=== PATIENT | female | born 1975 | race Caucasian/White ===

== ENCOUNTER 2017-11-04 09:48 | Day surgery (SDC) | payer OTHER ==
[2017-11-04] MEDS ORDERED: DIPRIVAN 200 MG/20 ML IV ONE (09:49)
[2017-11-04] MEDS ORDERED: LIDOCAINE HCL 2% 100 MG/5 ML ONE (10:00)
[2017-11-04] MEDS ORDERED: Xylocaine-Mpf 2 ML ONE (10:00)
[2017-11-04] MEDS ORDERED: Marcaine 0.5% SDV 10 ML ONE (10:00)
[2017-11-04 11:24] LABS: Hematocrit 41.8 % (35-47); Hemoglobin 14.5 gm/dl (12.0-16.0); Mean Cell Volume 93.7 fl (78-100); Mean Corpuscular Hemoglobin 32.5 pg (26-32); Mean Corpuscular Hgb Concent. 34.7 g/dl (32-36); Mean Platelet Volume 11.1 fl (6-9.5); Platelet Count 224 K/mm3 (150-450); Red Blood Count 4.46 M/mm3 (4.1-5.4); Red Cell Distribution Width 12.6 % (11.5-14.0); White Blood Count 9.5 K/mm3 (4.0-10.5)
[2017-11-04 11:39] LABS: INR 1.08 (0.8-3.0)
[2017-11-04 11:42] LABS: PTT 28.2 SECONDS (25.3-37.0)
--- NOTE | 2017-11-04 13:24 | XRAY ---
Indication: L5-S1 MBB. Intraoperative fluoroscopy was provided for 21 seconds. 2 digital spot images submitted for interpretation demonstrates 2 posterior spinal needle tips projecting over the left L4-L5 and L5-S1 facets. Correlate with intraoperative findings/report.
--- NOTE | 2017-11-04 13:26 | XRAY ---
21 seconds fluoroscopy time in surgery for L5-S1 MBB.
--- NOTE | 2017-11-05 09:44 | OP ---
DATE OF PROCEDURE: 11/04/2017 1205 SURGEON: Asad Lora D.O. PREOPERATIVE DIAGNOSIS: Degenerative lumbar spine disease, spondylosis, low back pain. POSTOPERATIVE DIAGNOSIS: Degenerative lumbar spine disease, spondylosis, low back pain. PROCEDURE PERFORMED: Left L5-L4 medial branch block under fluoroscopic guidance. DESCRIPTION OF THE PROCEDURE: The patient was taken to the operating room and placed in the prone position on the table. Skin at the injection site was prepped and draped in sterile fashion. Under fluoroscopy, bony anatomy of the targeted injection site was visualized. Induction agent was given as per anesthesia while vital signs were monitored. Local anesthetic agent of 0.5 cc of 1% lidocaine preservative free was introduced to anesthetize the skin and the subcutaneous tissue through the injection site. Under fluoroscopic guidance, a #20 gauge standard spinal needle was advanced into the target medial branch through the oblique approach. The preservative free 0.5 cc of 1% lidocaine and 0.5 cc of 0.25% Marcaine were injected into each of the targeted medial branch nerve. After the needle was being removed, the skin was cleansed with alcohol and then a bandage was applied. No complications or adverse consequences were observed. The patient was returned to the holding area until stabilized before discharge to home. The preoperative pain level was 7 to 8 out of 10 and the patient and the postoperative pain level is 4 out of 10. The patient will be followed up within ten days after the injection for re-evaluation.
== END 2017-11-04 12:31 | disposition home or self-care (01) ==
LOC: SDC-PAIN 09:48 → CLIN -PAIN 09:48
PROVIDERS: ATTEND Internal Medicine
DX: M46.96 Unspecified inflammatory spondylopathy, lumbar region (principal)
CPT/HCPCS: 36415; 64493; 64494; 72020; 77003; 85027; 85610; 85730; J2704

== ENCOUNTER 2019-09-21 12:22 | Day surgery (SDC) | payer OTHER ==
[2019-09-21] MEDS ORDERED: Marcaine 0.5% SDV 10 ML IJ ONE (12:23)
[2019-09-21] MEDS ORDERED: Xylocaine 1% Vial 30 ML PF IJ ONE (12:23)
[2019-09-21] MEDS ORDERED: Depo-Medrol 40 MG/ML IM ONE (12:23)
--- NOTE | 2019-09-21 15:46 | XRAY ---
Indication: Right knee injection. Intraoperative fluoroscopy was provided for 11 seconds. Single digital spot image submitted for interpretation demonstrates needle tip projecting over the right femur intercondylar notch. Small amount of contrast injected for needle tip placement. Correlate with intraoperative findings/report.
--- NOTE | 2019-09-21 16:42 | XRAY ---
11 seconds fluoroscopy time in surgery for right intra-articular knee injection.
== END 2019-09-21 14:15 | disposition home or self-care (01) ==
LOC: SDC-PAIN 12:22
PROVIDERS: ATTEND Psychiatry & Neurology Pain Medicine
DX: M17.11 Unilateral primary osteoarthritis, right knee (principal); I10 Essential (primary) hypertension; E78.00 Pure hypercholesterolemia, unspecified; K21.9 Gastro-esophageal reflux disease without esophagitis; F41.8 Other specified anxiety disorders; Z79.899 Other long term (current) drug therapy
CPT/HCPCS: 20610; 73560; 77002; J1030; J2001; Q9966

== ENCOUNTER 2020-04-11 10:55 | Day surgery (SDC) | payer OTHER ==
[~2020-04-11 10:55] MED LIST: DIPRIVAN 200 MG/20 ML IV ONE; Ketamine HCl 50 MG/ML ONE
[2020-04-11] MEDS ORDERED: LIDOCAINE HCL 2% 100 MG/5 ML IJ ONE (10:56)
[2020-04-11] MEDS ORDERED: Depo-Medrol 40 MG/ML IM ONE (10:56)
--- NOTE | 2020-04-11 13:25 | XRAY ---
Indication: Bilateral L4-S1 MBB. Intraoperative fluoroscopy was provided for 10 seconds. Single digital spot image submitted for interpretation demonstrates posterior needle tips projecting over the expected left and right L4-S1 nerve roots. Correlate with intraoperative findings/report.
--- NOTE | 2020-04-11 14:06 | XRAY ---
10 seconds of fluoroscopy was used in surgery for a bilateral L4-L5 and L5-S1 MBB.
[2020-04-11] MEDS ORDERED: Lactated Ringers 1,000 ML IV ONE (15:50)
== END 2020-04-11 13:01 | disposition home or self-care (01) ==
LOC: SDC-PAIN 10:55
PROVIDERS: ATTEND Psychiatry & Neurology Pain Medicine
DX: M47.816 Spondylosis without myelopathy or radiculopathy, lumbar region (principal); I10 Essential (primary) hypertension; E78.00 Pure hypercholesterolemia, unspecified; K21.9 Gastro-esophageal reflux disease without esophagitis; F41.8 Other specified anxiety disorders; Z79.899 Other long term (current) drug therapy
CPT/HCPCS: 72020; 77002; 84703; J1030; J2704

== ENCOUNTER 2020-05-09 10:17 | Day surgery (SDC) | payer OTHER ==
[2020-05-09] MEDS ORDERED: BUPIVACAINE 0.5% VIAL IJ ONE (10:18)
[2020-05-09] MEDS ORDERED: Depo-Medrol 40 MG/ML IM ONE (10:18)
--- NOTE | 2020-05-09 14:09 | XRAY ---
Indication: Bilateral L4-S1 MBB. Intraoperative fluoroscopy was provided for 16 seconds. Single digital spot image submitted for interpretation demonstrates posterior needle tips projecting over the expected left and right L4-S1 nerve roots. Correlate with intraoperative findings/report.
[2020-05-09] MEDS ORDERED: Lactated Ringers 1,000 ML IV ONE (15:58)
--- NOTE | 2020-05-09 16:37 | XRAY ---
16 seconds fluoroscopy time in surgery for bilateral L4-S1 MBB.
== END 2020-05-09 12:55 | disposition home or self-care (01) ==
LOC: SDC-PAIN 10:17
PROVIDERS: ATTEND Psychiatry & Neurology Pain Medicine
DX: M47.816 Spondylosis without myelopathy or radiculopathy, lumbar region (principal); I10 Essential (primary) hypertension; E78.00 Pure hypercholesterolemia, unspecified; K21.9 Gastro-esophageal reflux disease without esophagitis; F41.9 Anxiety disorder, unspecified; Z79.899 Other long term (current) drug therapy
CPT/HCPCS: 64493; 64494; 72020; 77002; J1030; J2704

== ENCOUNTER 2020-05-30 11:20 | Day surgery (SDC) | payer OTHER ==
[2020-05-30] MEDS ORDERED: Depo-Medrol 40 MG/ML IM ONE (11:21)
[2020-05-30] MEDS ORDERED: BUPIVACAINE 0.5% VIAL IJ ONE (11:21)
[2020-05-30] MEDS ORDERED: DIPRIVAN 200 MG/20 ML IV ONE (13:21)
[2020-05-30] MEDS ORDERED: Ketamine HCl 50 MG/ML ONE (13:21)
--- NOTE | 2020-05-30 14:17 | XRAY ---
Indication: Bilateral SI joint injection. Intraoperative fluoroscopy was provided for 17 seconds. 4 digital spot images submitted for interpretation demonstrates posterior needle tip projecting over the inferior left and right SI joint. Correlate with intraoperative findings/report.
--- NOTE | 2020-05-30 14:17 | XRAY ---
17 seconds fluoroscopy time in surgery for bilateral SI joint injections.
[2020-05-30] MEDS ORDERED: Lactated Ringers 1,000 ML IV ONE (16:47)
== END 2020-05-30 13:46 | disposition home or self-care (01) ==
LOC: SDC-PAIN 11:20
PROVIDERS: ATTEND Psychiatry & Neurology Pain Medicine
DX: M46.1 Sacroiliitis, not elsewhere classified (principal); I10 Essential (primary) hypertension; Z79.899 Other long term (current) drug therapy; E78.00 Pure hypercholesterolemia, unspecified; K21.9 Gastro-esophageal reflux disease without esophagitis; F41.8 Other specified anxiety disorders
CPT/HCPCS: 72202; 77002; G0260; 27096; J1030; J2704

== ENCOUNTER 2020-07-11 13:52 | Day surgery (SDC) | payer OTHER ==
[2020-07-11] MEDS ORDERED: BUPIVACAINE 0.5% VIAL IJ ONE (13:53)
[2020-07-11] MEDS ORDERED: Depo-Medrol 40 MG/ML IM ONE (13:53)
[2020-07-11] MEDS ORDERED: Ketamine HCl 50 MG/ML ONE (14:59)
[2020-07-11] MEDS ORDERED: DIPRIVAN 200 MG/20 ML IV ONE (14:59)
[2020-07-11] MEDS ORDERED: Lactated Ringers 1,000 ML IV ONE (16:07)
--- NOTE | 2020-07-11 16:53 | XRAY ---
Indication: Bilateral L4-S1 MBB. Intraoperative fluoroscopy was provided for 17 seconds. Single digital spot image submitted for interpretation demonstrates posterior needle tips projecting over the expected left and right L4-S1 nerve roots. Correlate with intraoperative findings/report.
--- NOTE | 2020-07-11 17:00 | XRAY ---
17 seconds fluoroscopy time in surgery for bilateral L4-S1 MBB.
== END 2020-07-11 15:27 | disposition home or self-care (01) ==
LOC: SDC-PAIN 13:52
PROVIDERS: ATTEND Psychiatry & Neurology Pain Medicine
DX: M47.816 Spondylosis without myelopathy or radiculopathy, lumbar region (principal); I10 Essential (primary) hypertension; E78.00 Pure hypercholesterolemia, unspecified; K21.9 Gastro-esophageal reflux disease without esophagitis; F41.9 Anxiety disorder, unspecified; Z79.899 Other long term (current) drug therapy
CPT/HCPCS: 64493; 64494; 72020; 77002; J1030; J2704

== ENCOUNTER 2020-10-03 10:16 | Day surgery (SDC) | payer OTHER ==
[2020-10-03] MEDS ORDERED: Xylocaine 1% Vial 30 ML PF IJ ONE (10:17)
[2020-10-03] MEDS ORDERED: Depo-Medrol 40 MG/ML IM ONE (10:17)
[2020-10-03] MEDS ORDERED: BUPIVACAINE 0.5% VIAL IJ ONE (10:17)
[2020-10-03] MEDS ORDERED: Ketamine HCl 50 MG/ML ONE (11:37)
[2020-10-03] MEDS ORDERED: DIPRIVAN 200 MG/20 ML IV ONE (11:37)
--- NOTE | 2020-10-03 12:41 | XRAY ---
Indication: Left L4-S1 RFA Intraoperative fluoroscopy provided for 23 seconds. 3 digital spot images submitted for interpretation demonstrates posterior needle tips projecting over the expected left L4-S1 nerve roots. Correlate with intraoperative findings/report.
--- NOTE | 2020-10-03 12:46 | XRAY ---
23 seconds fluoroscopy time in surgery for left L4-S1 RFA.
[2020-10-03] MEDS ORDERED: Lactated Ringers 1,000 ML IV ONE (16:12)
== END 2020-10-03 12:10 | disposition home or self-care (01) ==
LOC: SDC-PAIN 10:16
PROVIDERS: ATTEND Psychiatry & Neurology Pain Medicine
DX: M47.816 Spondylosis without myelopathy or radiculopathy, lumbar region (principal); I10 Essential (primary) hypertension; E78.5 Hyperlipidemia, unspecified; K21.9 Gastro-esophageal reflux disease without esophagitis; F41.9 Anxiety disorder, unspecified; E66.9 Obesity, unspecified; M19.90 Unspecified osteoarthritis, unspecified site; Z79.899 Other long term (current) drug therapy
CPT/HCPCS: 64635; 64636; 72100; 77002; J1030; J2001; J2704

== ENCOUNTER 2020-10-17 11:09 | Day surgery (SDC) | payer OTHER ==
[2020-10-17] MEDS ORDERED: BUPIVACAINE 0.5% VIAL IJ ONE (11:10)
[2020-10-17] MEDS ORDERED: Depo-Medrol 40 MG/ML IM ONE (11:10)
[2020-10-17] MEDS ORDERED: Xylocaine 1% Vial 30 ML PF IJ ONE (11:10)
[2020-10-17] MEDS ORDERED: DIPRIVAN 200 MG/20 ML IV ONE (13:24)
[2020-10-17] MEDS ORDERED: Ketamine HCl 50 MG/ML ONE (13:24)
--- NOTE | 2020-10-17 14:14 | XRAY ---
Indication: Right L4-S1 RFA. Intraoperative fluoroscopy provided for 29 seconds. 3 digital spot image submitted for interpretation demonstrates posterior needle tips projecting over the expected right L4-S1 nerve roots. Correlate with intraoperative findings/report.
[2020-10-17] MEDS ORDERED: Lactated Ringers 1,000 ML IV ONE (15:14)
--- NOTE | 2020-10-17 16:38 | XRAY ---
29 seconds of fluoroscopy was used in surgery for a right L4-L5, L5-S1 RFA.
== END 2020-10-17 13:56 | disposition home or self-care (01) ==
LOC: SDC-PAIN 11:09
PROVIDERS: ATTEND Psychiatry & Neurology Pain Medicine
DX: M47.816 Spondylosis without myelopathy or radiculopathy, lumbar region (principal); I10 Essential (primary) hypertension; E78.00 Pure hypercholesterolemia, unspecified; K21.9 Gastro-esophageal reflux disease without esophagitis; F41.9 Anxiety disorder, unspecified; Z79.899 Other long term (current) drug therapy
CPT/HCPCS: 64635; 64636; 72100; 77002; J1030; J2001; J2704

== ENCOUNTER 2025-02-22 08:24 | Day surgery (SDC) | payer BC ==
[2025-02-22] MEDS ORDERED: BUPIVACAINE 0.5% VIAL IJ ONE (08:25)
[2025-02-22] MEDS ORDERED: Depo-Medrol 40 MG/ML IM ONE (08:25)
[2025-02-22] MEDS ORDERED: propofoL IV ONE (10:25)
[2025-02-22] MEDS ORDERED: Lactated Ringers 1,000 ML IV ONE (10:59)
--- NOTE | 2025-02-22 11:47 | XRAY ---
18 seconds of fluoroscopy was used in surgery for a right intra-articular shoulder and subacromial bursa injection.
--- NOTE | 2025-02-22 12:15 | XRAY ---
Indication: Right shoulder and subacromial bursa injection. Intraoperative fluoroscopy provided for 18 seconds. 2 digital spot images submitted for interpretation demonstrates needle tip projecting over right glenohumeral joint superiorly. Second needle tip subacromial. Small amount of contrast injected for needle tip placement. Correlate with intraoperative findings/report.
== END 2025-02-22 10:55 | disposition home or self-care (01) ==
LOC: SDC-PAIN 08:24
PROVIDERS: ATTEND Psychiatry & Neurology Pain Medicine
DX: M19.011 Primary osteoarthritis, right shoulder (principal); M75.51 Bursitis of right shoulder; E11.9 Type 2 diabetes mellitus without complications

== ENCOUNTER 2025-05-11 16:50 | Emergency (ER) | payer BC ==
[2025-05-11 17:01] VITALS: PULSE 68; TEMP 98; O2SAT 99
--- NOTE | 2025-05-11 17:10 | ERPHSYRPT ---
- History of Present Illness Time Seen by Provider: 05/11/25 17:00 Source: patient Patient Subjective Stated Complaint: pt dropped a large can of [employer] on her right foot 2 days ago Triage Nursing Assessment: Pt brought to the ER by her , hypertensive, rates pain as 8/10, pulses normal, skin n/w/d, bruising to the top of the foot at the base of the toes, denies any other injuries, doesn't appear to be in any distress Physician History: Patient presents with right distal foot pain after dropping a can of soup on it 24 hours ago. Reports pain with ambulation.No numbness weakness. No ankle pain Allergies/Adverse Reactions: lisinopril Allergy (Verified 05/11/25 17:07) topiramate [From Topamax] Allergy (Verified 05/11/25 17:07) Home Medications: Aspirin 325 mg PO DAILY 04/09/15 [History] Carvedilol 12.5 mg [Coreg 12.5 mg] 25 mg PO BID 04/09/15 [History] Gabapentin [Neurontin] 900 mg PO TID 04/09/15 [History] Amlodipine Besylate 10 mg [Norvasc 10 MG] 10 mg PO DAILY 04/11/15 [History] Aspirin/Acetaminophen/Caffeine [Excedrin Migraine Caplet] 1 each PO DAILY PRN 08/23/15 [History] Atorvastatin Calcium [Lipitor 40Mg] 80 mg PO DAILY 08/23/15 [History] Clopidogrel Bisulfate [PLAVIX 75 MG Tablet] 75 mg PO DAILY 08/23/15 [History] Ibuprofen/Diphenhydramine Cit [Advil Pm Caplet] 200.38 mg PO HS PRN 08/23/15 [History] Nitroglycerin 0.4 mg Tablet [Nitrostat 0.4 MG Tablet] 0.4 mg SL Q4HPRN PRN 08/23/15 [History] Promethazine HCl 25 mg [Phenergan 25 mg] 25 mg pe PO DAILY PRN 08/23/15 [History] Ropinirole HCl 0.5 mg [Requip 0.5 MG] 0.1 mg PO .UNKNOWN 06/16/17 [History] Trazodone HCl 50 mg [Desyrel 50 mg] 100 mg PO HS 09/08/17 [History] Oxycodone HCl/Acetaminophen [Percocet 5-325 mg Tablet] 1 each PO Q8HPRN PRN 09/29/17 [History] Tizanidine HCl 4 mg [Zanaflex 4 MG] 4 mg PO HS 09/29/17 [History] PANTOPRAZOLE 40 mg Tablet [Protonix 40MG Tablet] 40 mg PO DAILY 11/16/17 [History] Hx Influenza Vaccination/Date Given: No Hx Pneumococcal Vaccination/Date Given: No Travel Risk - International Travel Have you traveled outside of the country in past 3 weeks: No - Emerging Infectious Disease Are you exhibiting symptoms associated with any current EIDs: No - Review of Systems Constitutional: No Fever, No Chills Eyes: No Symptoms Ears, Nose, & Throat: No Symptoms Respiratory: No Cough, No Dyspnea Cardiac: No Chest Pain, No Edema, No Syncope Abdominal/Gastrointestinal: No Abdominal Pain, No Nausea, No Vomiting, No Diarrhea Genitourinary Symptoms: No Dysuria Musculoskeletal: Arthralgias, No Back Pain, No Neck Pain Skin: No Rash Neurological: No Dizziness, No Focal Weakness, No Sensory Changes Psychological: No Symptoms Endocrine: No Symptoms All Other Systems: Reviewed and Negative - Past Medical History Pertinent Past Medical History: Yes Neurological History: No Pertinent History ENT History: No Pertinent History Cardiac History: Coronary Artery Disease, High Cholesterol, Hypertension Respiratory History: No Pertinent History Endocrine Medical History: Diabetes Type II Musculoskeletal History: Degenerative Disk Disease GI Medical History: No Pertinent History History: No Pertinent History Psycho-Social History: No Pertinent History Female Reproductive Disorders: No Pertinent History Other Medical History: SX HX: CARDIAC STENTS X 2 2016, CHOLECYSTECTOMY 2003, PARTIAL HYSTERECTOMY 2003 - Past Surgical History Past Surgical History: Yes Neuro Surgical History: No Pertinent History Cardiac: Cardiac Catheterization Respiratory: No Pertinent History Gastrointestinal: No Pertinent History Genitourinary: No Pertinent History Musculoskeletal: No Pertinent History Female Surgical History: Hysterectomy, Lumpectomy Other Surgical History: Lumps removed from both breasts,both were beingn - Female History Hx Now: No (hysterectomy) - Social History Smoking Status: Current every day smoker How long have you smoked: 25 Exposure to second hand smoke: Yes Drug Use: none - Social Determinants of Health Will the patient participate in the screening: Yes Do you worry about a steady place to live?: No Do you have any problems with any of the following?: No known problems In the past 12 months,have you had to go without utilities?: No Transportation Issues: No Has anyone in your support network made you feel unsafe?: No Have you or anyone in your house had to go w/o enough food: No - Nursing Vital Signs Nursing Vital Signs: Initial Vital Signs Temperature 98.0 F 05/11/25 17:00 Pulse Rate 68 05/11/25 17:00 Blood Pressure 161/83 05/11/25 17:00 O2 Sat by Pulse Oximetry 99 05/11/25 17:00 Pain Scale Pain Intensity 8 - Physical Exam General Appearance: no apparent distress, mild distress Extremity Exam: other (There is no deformity. Patient has some mild soft tissue swelling over the distal 2nd and 3rd metatarsal tarsal. There is local tenderness to palpation. Extremities neurovasc intact. Ankle nontender.) SpO2: 99 Ordered Tests: Active Orders 24 hr Category Date Time Status FOOT (MINIMUM 3 VIEWS) Stat Exams 05/11/25 17:06 Completed Lab/Rad Data: [address] [address] Name: FILOMENA SALES Attending Physician: STEPHANIE RUSSO IMAGING REPORT : 1975 Age: 50 Sex: F Location: ED Report #: [id number] Exam Date: 05/11/25 Status: PRE ER Radiology #: Procedures: [id number] RAD/FOOT (MINIMUM 3 VIEWS) Indication: Trauma. Comparison: None 3 nonweightbearing views right foot demonstrates tiny cuboid/navicular accessory ossicles and tiny heel spurs. No acute bony, articular, or soft tissue abnormalities. Reported by: LOWELL GUTIERREZ DO Signed by: LOWELL GUTIERREZ DO Signed date/t trever: 05/11/25 9753 Copies to: STEPHANIE RUSSO KATHLEEN MARIE - Progress Progress Note: 05/11/25 17:09 Is a 50-year-old female with trauma to right foot after dropping a can on it. X-rays were obtained to evaluate for fracture. - Departure Departure Disposition: Home Clinical Impression: Contusion of foot Condition: Good Critical Care Time: No Referrals: ARLETH SANTOS NP [Primary Care Provider, [facility]] - Follow up/PCP as directed Instructions: Contusion (DC) Additional Instructions: No break was seen by the radiologist.Continue Tyle or ibuprofen for discomfort. Wear the hard soled shoe for more support. If your foot pain has not improved within a week could be rechecked with follow-up with your provider. Return for worsening symptoms or concern
--- NOTE | 2025-05-11 17:20 | XRAY ---
Indication: Trauma. Comparison: None 3 nonweightbearing views right foot demonstrates tiny cuboid/navicular accessory ossicles and tiny heel spurs. No acute bony, articular, or soft tissue abnormalities.
[2025-05-11 17:47] VITALS: BP 135/87
== END 2025-05-11 17:52 | disposition home or self-care (01) ==
LOC: ED 16:50
DX: S90.31XA Contusion of right foot, initial encounter (principal); W20.8XXA Other cause of strike by thrown, projected or falling object, initial encounter; I10 Essential (primary) hypertension; E11.9 Type 2 diabetes mellitus without complications; Z79.02 Long term (current) use of antithrombotics/antiplatelets; Z79.899 Other long term (current) drug therapy; Z72.0 Tobacco use